=== PATIENT | male | born 1975 | race Caucasian/White ===

== ENCOUNTER → 2018-05-16 | Outpatient (CLI) | payer MEDICARE, MEDICAID ==
[2018-05-16 16:19] LABS: BASOPHILS % (AUTO) 1 % (0-10); EOSINOPHILS # (AUTO) 0.1 10^3/uL (0.0-0.3); EOSINOPHILS % (AUTO) 2 % (0-10); HEMATOCRIT 40 % (40-54); HEMOGLOBIN 13.6 G/DL (13.3-17.7); LYMPHOCYTES # (AUTO) 3.2 X 10^3 (1.0-4.0); LYMPHOCYTES % (AUTO) 38 % (12-44); MEAN CORPUSCULAR HEMOGLOBIN 29 PG (25-34); MEAN CORPUSCULAR HGB CONC 34 G/DL (32-36); MEAN CORPUSCULAR VOLUME 84 FL (80-99); MEAN PLATELET VOLUME 9.7 FL (7.4-10.4); MONOCYTES # (AUTO) 0.7 X 10^3 (0.0-1.0); MONOCYTES % (AUTO) 8 % (0-12); NEUTROPHILS # (AUTO) 4.6 X 10^3 (1.8-7.8); NEUTROPHILS % (AUTO) 53 % (42-75); PLATELET COUNT 256 10^3/uL (130-400); RED BLOOD COUNT 4.77 10^6/uL (4.35-5.85); RED CELL DISTRIBUTION WIDTH 13.3 % (10.0-14.5); WHITE BLOOD COUNT 8.6 10^3/uL (4.3-11.0)
[2018-05-19 00:22] LABS: ALTERNARIA MOLD RAST <0.35 kU/L (<0.35); RAGWEED RAST <0.35 kU/L (<0.35)
== END ==
LOC: LAB 15:13
PROVIDERS: ATTEND Nurse Practitioner Family
DX: J45.909 Unspecified asthma, uncomplicated (principal); R06.00 Dyspnea, unspecified; G47.30 Sleep apnea, unspecified
CPT/HCPCS: 36415; 82785; 85025; 86003

== ENCOUNTER → 2018-05-29 | Outpatient (CLI) | payer MEDICARE, MEDICAID ==
[~2018-05-29] MED LIST: RT-ALBUTEROL SULF 2.5 MG/3 ML PRE-MIX VIAL INH ONE; RT-ALBUTEROL SULF 2.5 MG/3 ML PRE-MIX VIAL ONE
== END ==
LOC: RT 12:14
PROVIDERS: ATTEND Nurse Practitioner Family
DX: J45.909 Unspecified asthma, uncomplicated (principal); G47.30 Sleep apnea, unspecified; R06.00 Dyspnea, unspecified
CPT/HCPCS: 36600; 82805; 94060; 94726; 94729

== ENCOUNTER → 2018-06-09 | Outpatient (CLI) | payer MEDICARE, MEDICAID | LOC: CARD 12:53 | PROVIDERS: ATTEND Internal Medicine Interventional Cardiology | DX: R00.2 Palpitations (principal); E11.9 Type 2 diabetes mellitus without complications; E78.00 Pure hypercholesterolemia, unspecified; I10 Essential (primary) hypertension; I47.1 Supraventricular tachycardia; R06.02 Shortness of breath | CPT/HCPCS: 93225; 93226 ==

== ENCOUNTER 2018-07-09 14:30 | Outpatient (RCR) | payer MEDICARE, MEDICAID | END 2018-09-10 | disposition home or self-care (01) | LOC: CARD 14:30 | PROVIDERS: ATTEND Internal Medicine Interventional Cardiology | DX: I47.1 Supraventricular tachycardia (principal); R06.02 Shortness of breath | CPT/HCPCS: 93270 ==

== ENCOUNTER → 2018-08-08 | Outpatient (CLI) | payer MEDICARE, MEDICAID | LOC: CARD 12:20 | PROVIDERS: ATTEND Internal Medicine Interventional Cardiology | DX: E11.9 Type 2 diabetes mellitus without complications (principal); E78.00 Pure hypercholesterolemia, unspecified; I10 Essential (primary) hypertension; I47.1 Supraventricular tachycardia; R06.02 Shortness of breath | CPT/HCPCS: 93306 ==

== ENCOUNTER → 2020-05-05 | Outpatient (CLI) | payer MEDICARE, MEDICAID ==
[2020-05-05 13:28] LABS: BASOPHILS # (AUTO) 0.1 10^3/uL (0.0-0.1); BASOPHILS % (AUTO) 1 % (0-10); EOSINOPHILS # (AUTO) 0.3 10^3/uL (0.0-0.3); EOSINOPHILS % (AUTO) 4 % (0-10); HEMATOCRIT 45 % (40-54); HEMOGLOBIN 15.3 g/dL (13.3-17.7); LYMPHOCYTES # (AUTO) 2.6 10^3/uL (1.0-4.0); LYMPHOCYTES % (AUTO) 34 % (12-44); MEAN CORPUSCULAR HEMOGLOBIN 28 pg (25-34); MEAN CORPUSCULAR HGB CONC 34 g/dL (32-36); MEAN CORPUSCULAR VOLUME 83 fL (80-99); MEAN PLATELET VOLUME 9.4 fL (9.0-12.2); MONOCYTES # (AUTO) 0.5 10^3/uL (0.0-1.0); MONOCYTES % (AUTO) 6 % (0-12); NEUTROPHILS # (AUTO) 4.4 10^3/uL (1.8-7.8); NEUTROPHILS % (AUTO) 55 % (42-75); PLATELET COUNT 272 10^3/uL (130-400); WHITE BLOOD COUNT 7.9 10^3/uL (4.3-11.0)
[2020-05-05 13:49] LABS: ALANINE AMINOTRANSFERASE 31 U/L (0-55); ALBUMIN 4.1 GM/DL (3.2-4.5); ALKALINE PHOSPHATASE 96 U/L (40-136); BILIRUBIN,TOTAL 0.3 MG/DL (0.1-1.0); BUN/CREATININE RATIO 13; CALCIUM 9.1 MG/DL (8.5-10.1); CARBON DIOXIDE 19 MMOL/L (21-32); CHLORIDE 104 MMOL/L (98-107); CREATININE SERUM 0.98 MG/DL (0.60-1.30); GFR ESTIMATED > 60; GLUCOSE 297 MG/DL (70-105); POTASSIUM 4.4 MMOL/L (3.6-5.0); SODIUM 136 MMOL/L (135-145); TOTAL PROTEIN 7.3 GM/DL (6.4-8.2)
== END ==
LOC: LAB 12:58
PROVIDERS: ATTEND Internal Medicine
DX: E11.65 Type 2 diabetes mellitus with hyperglycemia (principal); I10 Essential (primary) hypertension; Z79.4 Long term (current) use of insulin
CPT/HCPCS: 36415; 80053; 83036; 85025

== ENCOUNTER 2020-05-27 18:39 | Emergency (ER) | payer MEDICARE, MEDICAID ==
[~2020-05-27] VITALS: Ht 180 cm; Wt 135.0 kg
--- NOTE | 2020-05-27 19:03 | ED Upper Extremity ---
General Stated Complaint: FALL/L ARM INJ Source: patient Exam Limitations: no limitations History of Present Illness Date Seen by Provider: May 27, 2020 Time Seen by Provider: 18:59 Initial Comments To ER by private vehicle from home with reports of left forearm and hand pain. This occurred after he slipped and fell on a wet floor at [facility] earlier this evening. . Complains of some pain to the base of the thumb on the right and a numb painful sensation from the pinky finger on the left up to the elbow. Onset: just prior to arrival Severity: moderate Pain/Injury Location: left forearm Method of Injury: fell Modifying Factors: Worse With Movement Allergies and Home Medications Allergies Coded Allergies: Penicillins (Unverified Allergy, Severe, HIVES, 05/29/18) butorphanol (Verified Allergy, Unknown, 05/27/20) dapagliflozin (Verified Allergy, Unknown, 05/27/20) duloxetine (Verified Allergy, Unknown, 05/27/20) meperidine (Verified Allergy, Unknown, 05/27/20) Patient Home Medication List Home Medication List Reviewed: Yes Review of Systems Constitutional: see HPI EENTM: see HPI Respiratory: no symptoms reported Cardiovascular: no symptoms reported Gastrointestinal: see HPI Musculoskeletal: see HPI Skin: no symptoms reported Psychiatric/Neurological: No Symptoms Reported Past Ueppwmp-Ifvaav-Aizeyf Hx Patient Social History Recent Foreign Travel: No Contact w/Someone Who Travel: No Physical Exam Vital Signs Vital Signs - First Documented 05/27/20 19:01 Temp 36.6 Pulse 113 Resp 18 B/P (MAP) 152/99 (116) Pulse Ox 96 O2 Delivery Room Air Capillary Refill : Height, Weight, BMI Height: '" Weight: lbs. oz. kg; BMI Method: General Appearance: WD/WN, no apparent distress Neck: non-tender, full range of motion Respiratory: no respiratory distress, no accessory muscle use Gastrointestinal: normal bowel sounds, non tender Shoulder: normal inspection, non-tender Elbow/Forearm: normal inspection, non-tender Wrist: Yes normal inspection Hand: normal inspection, Right, Left, soft tissue tenderness Neurologic/Tendon: normal motor functions, normal tendon functions, other (Reduced sensation to the left pinky finger and the ulnar side of the ring finger. Normal sensation on the radial side of the ring finger. Brisk capillary refill no deformity no swelling no ecchymosis or abrasions to any part of the arm. Full flexion and extension of the elbow, he does have full powers pination and pronation of the forearm but this motion causes him pain mostly at the wrist.) Neurologic/Psychiatric: alert, normal mood/affect, oriented x 3 Skin: normal color, warm/dry Progress/Results/Core Measures Results/Orders My Orders Orders - CHRISSY ASHLEY APRN Forearm, Left, 2 Views (05/27/20 18:59) Hand, 3 Views, Bilateral (05/27/20 19:03) Wrist,Bilat,3 Views Or More (05/27/20 19:27) Hand, 3 Views, Bilateral (05/27/20 19:32) Vital Signs/I&O 05/27/20 19:01 Temp 36.6 Pulse 113 Resp 18 B/P (MAP) 152/99 (116) Pulse Ox 96 O2 Delivery Room Air Departure Impression Primary Impression: Fall Qualified Codes: W19.XXXA - Unspecified fall, initial encounter Additional Impressions: Contusion of ulnar nerve Qualified Codes: S54.02XA - Injury of ulnar nerve at forearm level, left arm, initial encounter Forearm contusion Qualified Codes: S50.12XA - Contusion of left forearm, initial encounter Disposition: 01 HOME, SELF-CARE Condition: Stable Departure-Patient Inst. Decision time for Depature: 20:26 Referrals: NO,LOCAL PHYSICIAN (PCP) Primary Care Physician CHARLES SIMONS MD, MICHAEL P MD Patient Instructions: Contusion (DC) Add. Discharge Instructions: 1. Call one of the orthopedists tomorrow to make an appointment to be seen for follow-up later this week. Return to ER for any concerns. CHRISSY ASHLEY APRN May 27, 2020 19:03
--- NOTE | 2020-05-27 19:40 | Diagnostic Imaging Report ---
EXAM: Left forearm at 7:18 PM INDICATION: Fell, arm pain. AP and lateral views were obtained. There are no prior studies available for comparison. FINDINGS: There is no fracture, dislocation or acute bony abnormality evident. The radiocarpal and elbow joints are well maintained. There is a tiny 1 to 2 mm calcific density interposed between the distal humerus, the radial head and the ulna on the AP view. This could represent a small loose body within the joint space. The posterior fat-pad of the elbow joint is not elevated. The soft tissues are unremarkable. IMPRESSION: 1. There is no evidence for an acute bony abnormality. 2. There is a question of a tiny loose body within the elbow joint. Dictated by: Dictated on workstation # [id number]
--- NOTE | 2020-05-27 19:42 | Diagnostic Imaging Report ---
EXAM: Bilateral wrists. INDICATION: Injury, hand and wrist pain 3 views of both wrist joints were obtained. COMPARISON: There are no prior studies available for comparison. FINDINGS: There is no fracture, dislocation or acute bony abnormality evident. There is mild narrowing of each radiocarpal joint. The soft tissues are unremarkable. IMPRESSION: There is no evidence for an acute bony abnormality of either wrist. Dictated by: Dictated on workstation # [id number]
[2020-05-27 20:30] VITALS: BP 149/87
--- NOTE | 2020-05-27 20:30 | Diagnostic Imaging Report ---
EXAM: Bilateral hands at 7:47 PM INDICATION: Hand pain. 3 views were obtained. FINDINGS: This exam is less than optimal as the patient was unable to straighten his fingers. There is no fracture, dislocation or acute bony abnormality identified with certainty. The soft tissues are unremarkable. IMPRESSION: 1. There is no evidence for an acute bony abnormality. 2. These results were discussed with Barron Hobbs APRN. Dictated by: Dictated on workstation # [id number]
== END 2020-05-27 20:31 | disposition home or self-care (01) ==
LOC: EDUNIT# 18:39 → ER 18:40
DX: S50.12XA Contusion of left forearm, initial encounter (principal); Z88.0 Allergy status to penicillin; Z88.5 Allergy status to narcotic agent; Z88.8 Allergy status to other drugs, medicaments and biological substances; W01.0XXA Fall on same level from slipping, tripping and stumbling without subsequent striking against object, initial encounter
CPT/HCPCS: 73090

== ENCOUNTER 2020-10-26 08:32 | Emergency (ER) | payer MEDICARE, MEDICAID ==
[~2020-10-26] VITALS: Ht 180.3 cm; Wt 138.6 kg
--- NOTE | 2020-10-26 09:10 | ED General ---
General Chief Complaint: Bite-Animal/Human/Insect Stated Complaint: BEE STING Nursing Triage Note: AMB TO ED REPORTS WAS WALKING IN HOUSE WHEN WAS STUNG ON BOTTEM OF R FOOT IS ALLERGIC TO BUT COULD NOT FIND EPI PEN C/O NAUSEA AND WITH ITCHEY. BITE OCCURED AT 805AM Nursing Sepsis Screen: No Definite Risk Source of Information: Patient Exam Limitations: No Limitations History of Present Illness Date Seen by Provider: Oct 26, 2020 Time Seen by Provider: 08:50 Initial Comments Patient is a 45-year-old male who presents to the emergency department today with a chief complaint of a bee sting to the bottom of his right foot. Patient states that he was getting up and getting ready to take his dogs outside when he stepped on a bee. 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 Patient states he went to look for his EpiPen but cannot find it and decided to come to the emergency department. Patient is complaining of diffuse itching. He denies feeling short of breath, lightheaded or having a syncopal episode. He is not nauseated. He complains of pain to the metatarsophalangeal joint of his right foot at the base of his big toe where he was stung. Denies any and all other illnesses or complaints of injury. All other review of systems reviewed and negative except as stated. Timing/Duration: 1 Hour Severity: Mild Associated Systoms: Denies Symptoms Allergies and Home Medications Allergies Coded Allergies: Penicillins (Unverified Allergy, Severe, HIVES, 05/29/18) butorphanol (Verified Allergy, Unknown, 05/27/20) dapagliflozin (Verified Allergy, Unknown, 05/27/20) duloxetine (Verified Allergy, Unknown, 05/27/20) meperidine (Verified Allergy, Unknown, 05/27/20) Patient Home Medication List Home Medication List Reviewed: Yes Review of Systems Review of Systems Constitutional: see HPI EENTM: no symptoms reported Respiratory: no symptoms reported; No short of breath, No stridor, No wheezing Gastrointestinal: no symptoms reported; No nausea, No vomiting Genitourinary: no symptoms reported Musculoskeletal: joint pain (Right great toe) Skin: other (itching) All Other Systems Reviewed Negative Unless Noted: Yes Past Wdnjplj-Eszmsj-Oeztxi Hx Patient Social History Alcohol Use: Denies Use Smoking Status: Never a Smoker 2nd Hand Smoke Exposure: No Recent Infectious Disease Expo: No Recent Hopitalizations: No Immunizations Up To Date Tetanus Booster (TDap): Unknown Seasonal Allergies Seasonal Allergies: No Past Medical History Surgeries: No Respiratory: Yes Asthma, COPD Cardiac: Yes Hypertension Neurological: No Genitourinary: No Gastrointestinal: No Musculoskeletal: No Endocrine: Yes Diabetes, Non-Insulin dep HEENT: No Cancer: No Psychosocial: No Integumentary: No Blood Disorders: No Physical Exam Vital Signs Vital Signs - First Documented 10/26/20 08:32 Temp 36.3 Pulse 89 Resp 18 B/P (MAP) 159/92 (114) Pulse Ox 97 O2 Delivery Room Air Capillary Refill : Less Than 3 Seconds Height, Weight, BMI Height: '" Weight: lbs. oz. kg; 42.00 BMI Method: General Appearance: No Apparent Distress, WD/WN HEENT: PERRL/EOMI Neck: Normal Inspection Respiratory: Lungs Clear, Normal Breath Sounds, No Accessory Muscle Use, No Respiratory Distress Cardiovascular: Regular Rate, Rhythm Back: Normal Inspection Extremity: Normal Capillary Refill, Normal Inspection, Normal Range of Motion, Other (Right great toe MTP joint minimal swelling minimal erythema some pain with manipulation of the great toe) Neurologic/Psychiatric: Alert, Oriented x3, No Motor/Sensory Deficits, Normal Mood/Affect Skin: Normal Color, Warm/Dry, Other (No hives are noted or other rashes) Progress/Results/Core Measures Suspected Sepsis Recent Fever Within 48 Hours: No Infection Criteria Present: None New/Unexplained Altered Menta: No Sepsis Screen: No Definite Risk SIRS Temperature: Pulse: 89 Respiratory Rate: 18 Blood Pressure 159 /92 Mean: 114 Results/Orders My Orders Orders - NADIRA SHARP MD Prednisone Tablet (Deltasone Tablet) (10/26/20 09:15) Diphenhydramine Tablet (Benadryl Tablet) (10/26/20 09:15) Prednisone Tablet (Deltasone Tablet) (10/26/20 09:15) Vital Signs/I&O 10/26/20 08:32 Temp 36.3 Pulse 89 Resp 18 B/P (MAP) 159/92 (114) Pulse Ox 97 O2 Delivery Room Air Capillary Refill : Less Than 3 Seconds Blood Pressure Mean: 114 Departure Impression Primary Impression: Allergic reaction to bee sting Disposition: 01 HOME, SELF-CARE Condition: Stable Departure-Patient Inst. Decision time for Depature: 09:10 Referrals: [facility] [place],LOCAL PHYSICIAN (PCP) Primary Care Physician Patient Instructions: Insect Bites and Stings Add. Discharge Instructions: Take [id number] Benadryl, 2 pills which is 50 mg every 6 hours as needed for the next 24 hours. I have given you a dose of Benadryl here in the emergency department as well as prednisone. Take the prednisone once a day for the next 3 days after today. If you become short of breath, lightheaded dizzy or have a passing out spell or have any other emergent concerning symptoms please come back to the emergency room for reevaluation. Scripts Prednisone (Prednisone) 20 Mg Tab 40 MG PO DAILY, #6 TAB 0 Refills Prov: NADIRA SHARP MD 10/26/20 NADIRA SHARP MD Oct 26, 2020 09:10
[2020-10-26] MEDS ORDERED: PRD20T PO (09:12)
[2020-10-26] MEDS ORDERED: predniSONE 20 MG TAB PO ONE ×2 (09:15)
[2020-10-26] MEDS ORDERED: diphenhydrAMINE 25 MG TAB (BENADRYL) PO ONE (09:15)
[2020-10-26 09:30] VITALS: BP 173/113
== END 2020-10-26 09:30 | disposition home or self-care (01) ==
LOC: ER 08:32 → EDUNIT# 08:37 → ER 09:30
DX: T63.441A Toxic effect of venom of bees, accidental (unintentional), initial encounter (principal); J44.9 Chronic obstructive pulmonary disease, unspecified; I10 Essential (primary) hypertension; E11.9 Type 2 diabetes mellitus without complications; Z88.0 Allergy status to penicillin; Z88.5 Allergy status to narcotic agent; Z88.8 Allergy status to other drugs, medicaments and biological substances
CPT/HCPCS: 99283

== ENCOUNTER → 2021-02-04 | Outpatient (CLI) | payer MEDICARE, MEDICAID ==
[~2021-02-04] MED LIST changes: +PRD20T PO; -RT-ALBUTEROL SULF 2.5 MG/3 ML PRE-MIX VIAL ONE
== END ==
LOC: RT 13:00
PROVIDERS: ATTEND Nurse Practitioner Family
DX: J44.9 Chronic obstructive pulmonary disease, unspecified (principal)
CPT/HCPCS: 94060; 94726; 94729

== ENCOUNTER 2021-03-27 22:31 | Emergency (ER) | payer MEDICARE, MEDICAID ==
[~2021-03-27] VITALS: Ht 177.8 cm; Wt 112.0 kg
[~2021-03-27 22:31] MED LIST changes: -RT-ALBUTEROL SULF 2.5 MG/3 ML PRE-MIX VIAL INH ONE
--- OUTSIDE RECORDS SUMMARY | 2021-03-27 22:36 | XMS REPORT | Clinical Summary ---
Author Author [facility] Address Unknown Phone Unavailable Care Team Providers Care Typesetting Machine Tender Name Role Phone Cheri Billings MD Unavailable Amy Oliva APRN Unavailable Caleb Rios MD Unavailable Homar Almaraz MD [phone] Leilani Mendoza DO [id number] Leilani Mendoza DO PCP Allergies Comments Active Allergy Reactions Severity Noted Date Meperidine Hcl Nausea And 08/31/2012 Vomiting Duloxetine Nausea And 12/04/2010 Vomiting Dapagliflozin Swelling High 02/23/2017 Atorvastatin Hives, Rash High 09/13/2013 Penicillins Nausea And High 12/04/2010 Vomiting Quetiapine Fumerate Hives 08/31/2012 ONLY TESTOSTERONE GELS- IM TESTOSTERONE [place] Testosterone Hives, Rash 03/06/2019 Wasp Venom Protein Hives 08/31/2012 Medications End Date Status Medication Sig Dispensed Refills Start Date Active fenofibrate (TRICOR) 145 TAKE 1 TABLET 90 tablet 3 MG tabletIndications: BY MOUTH 0 Mixed hyperlipidemia EVERY DAY Active allopurinol (ZYLOPRIM) Take 1 tablet 90 tablet 3 0 100 MG tabletIndications: (100 mg 0 Chronic gout 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 cause, unspecified site Active cetirizine (ZYRTEC) 10 MG Take 1 tablet 90 tablet 3 tabletIndications: (10 mg total) 0 Asthma, moderate by mouth persistent, daily. poorly-controlled Active dilTIAZem (TIAZAC) 180 MG TAKE 1 90 capsule 3 24 hr capsuleIndications: CAPSULE BY 0 Essential hypertension MOUTH EVERY DAY Active exenatide ER (BYDUREON Inject 0.85 10.2 mL 3 BCISE) 2 MG/0.85ML mLs (2 mg 0 Auto-injector total) into penIndications: Type 2 the skin diabetes mellitus with every 7 days. hyperglycemia, without Dx. E11.65 long-term current use of insulin ([facility]), Hypogonadism in male, Diabetic peripheral neuropathy ([facility]), Class 3 severe obesity due to excess calories with serious comorbidity and body mass index (BMI) of 45.0 to 49.9 in adult ([facility]), Essential hypertension, Mixed hyperlipidemia, Personal history of nonadherence to medical treatment, Exercise counseling, High risk medication use, Dietary counseling and surveillance Active glipiZIDE (GLUCOTROL) 5 Take 1 tablet 270 tablet 3 MG tabletIndications: (5 mg total) 0 Hyperglycemia by mouth 3 (three) times daily. Additional Information Patient not taking. Reported on 08/27/2020 Active Insulin Pen Needle 31G X Use to inject 200 each 3 5 MM MISCIndications: insulin 5 0 Type 2 diabetes mellitus times/day. with hyperglycemia, without long-term current use of insulin ([facility]), Hypogonadism in male, Diabetic peripheral neuropathy ([facility]), Class 3 severe obesity due to excess calories with serious comorbidity and body mass index (BMI) of 45.0 to 49.9 in adult ([facility]), Essential hypertension, Mixed hyperlipidemia, Personal history of nonadherence to medical treatment, Exercise counseling, High risk medication use, Dietary counseling and surveillance, Long-term insulin use ([facility]), Complex care coordination Active losartan (COZAAR) 100 MG Take 1 tablet 90 tablet 3 tabletIndications: (100 mg 0 Essential hypertension total) by mouth daily. Active rizatriptan (MAXALT) 5 MG Take 2 10 tablet 3 tabletIndications: tablets (10 0 Migraine with aura and mg total) by without status mouth as migrainosus, not needed for intractable Migraine. Active rosuvastatin (CRESTOR) 10 Take 1 tablet 90 tablet 3 MG tabletIndications: (10 mg total) 0 Hyperlipidemia by mouth daily. Indications: High Amount of Fats in the Blood Active nystatin (NYSTATIN) Apply 15 g 5 powderIndications: topically 2 0 Candidiasis times daily as needed Active amLODIPine (NORVASC) 10 Take 1 tablet 90 tablet 1 MG tabletIndications: (10 mg total) 0 Essential hypertension by mouth daily. Active carvedilol (COREG) 12.5 Take 1 tablet 180 tablet 1 MG tabletIndications: (12.5 mg 0 Essential hypertension total) by mouth 2 (two) times daily with meals. Active fluticasone (FLONASE) 50 SPRAY 1 SPRAY 32 mL 3 MCG/ACT nasal INTO EACH 0 sprayIndications: Asthma, NOSTRIL EVERY moderate persistent, DAY poorly-controlled Active furosemide (LASIX) 20 MG Take 1 tablet 90 tablet 1 tabletIndications: Type 2 (20 mg total) 0 diabetes mellitus with by mouth hyperglycemia, without daily. long-term current use of insulin (HCC), Hypogonadism in male, Diabetic peripheral neuropathy (HCC), Class 3 severe obesity due to excess calories with serious comorbidity and body mass index (BMI) of 45.0 to 49.9 in adult (HCC), Essential hypertension, Mixed hyperlipidemia, Personal history of nonadherence to medical treatment, Exercise counseling, High risk medication use, Dietary counseling and surveillance Active insulin detemir (LEVEMIR Inject 0.26 30 mL 1 1 FLEXTOUCH) 100 UNIT/ML mLs (26 Units 0 pen injectionIndications: total) into Type 2 diabetes mellitus the skin at with hyperglycemia, bedtime. without long-term current use of insulin (HCC) Active pantoprazole (PROTONIX) Take 1 tablet 90 tablet 1 20 MG tablet (20 mg total) 0 by mouth daily. Active SYRINGE-NEEDLE, DISP, 3 USE 100 each 1 ML (B-D 3CC LUER-MARIA LUISA SYR DIRECTED TO 0 [id number]/2) 21G X 1-1/2" 3 INJECT ML MISCIndications: TESTOSTERONE Hypogonadism in male Active icosapent (VASCEPA) 1 g TAKE 2 360 capsule 1 capsuleIndications: Mixed CAPSULES BY 0 hyperlipidemia MOUTH TWICE A DAY WITH MEALS Active albuterol (VENTOLIN HFA) INHALE 2 18 g 5 1 108 (90 Base) MCG/ACT PUFFS BY 0 inhalerIndications: MOUTH EVERY 6 Asthma, moderate HOURS persistent, NEEDED FOR poorly-controlled WHEEZE Active NOVOLOG FLEXPEN 100 INJECT 10 15 mL 5 UNIT/ML pen UNITS 0 injectionIndications: SUBCUTANEOUSL Type 2 diabetes mellitus Y THREE TIMES with hyperglycemia, DAILY BEFORE without long-term current MEAL(S) use of insulin ([facility]), Hypogonadism in male, Diabetic peripheral neuropathy ([facility]), Class 3 severe obesity due to excess calories with serious comorbidity and body mass index (BMI) of 45.0 to 49.9 in adult ([facility]), Essential hypertension, Mixed hyperlipidemia, Personal history of nonadherence to medical treatment, Exercise counseling, High risk medication use, Dietary counseling and surveillance, Long-term insulin use ([facility]), Complex care coordination Active tiotropium (SPIRIVA INHALE 2 4 g 1 RESPIMAT) 2.5 MCG/ACT SPRAY(S) BY 0 inhalerIndications: MOUTH ONCE Asthma, moderate DAILY persistent, poorly-controlled Active SYMBICORT 160-4.5 MCG/ACT Inhale 2 10.2 g 0 inhalerIndications: puffs by 0 Asthma, moderate mouth twice persistent, daily poorly-controlled Active pramipexole (MIRAPEX) 0.5 Take 1 tablet 90 tablet 3 MG tabletIndications: (0.5 mg 0 Restless legs syndrome total) by mouth daily. Active meloxicam (MOBIC) 7.5 MG Take 2 90 tablet 2 1 tabletIndications: Pain tablets (15 0 in joint, multiple sites mg total) by mouth daily. Active lamoTRIgine (LAMICTAL) Take 1 tablet 30 tablet 1 1 100 MG tabletIndications: (100 mg 0 Diabetic peripheral total) by neuropathy ([facility]) mouth daily. Active zolpidem (AMBIEN) 5 MG TAKE 1 TABLET 30 tablet 3 0 tabletIndications: BY MOUTH 1 Primary insomnia EVERY NIGHT AT BEDTIME NEEDED FOR SLEEP. DO NOT EXCEED A DAILY DOSE OF 5MG. Active oxybutynin (DITROPAN) 5 Take 1 tablet 60 tablet 5 MG tabletIndications: by mouth 1 Urinary frequency twice daily Active pregabalin (LYRICA) 200 TAKE 1 TABLET 90 capsule 3 MG capsuleIndications: BY MOUTH 1 Diabetic peripheral THREE TIMES neuropathy (HCC) DAILY Active Problems Problem Noted Date Migraine 05/22/2020 Last Assessment & Plan: Formatting of this note might be differ ent from the original. Patient will call insurance and find ne urologist in network/ close to him We will place referral for neurology to get evaluated Morbid obesity with BMI of 40.0-44.9, adult 11/08/19 Overview: Formatting of this note might be differ ent from the original. advised on diet and exercise. Primary insomnia 11/01/2019 Complex care coordination 02/21/2019 PALACIO (dyspnea on exertion) 08/02/2016 Personal history of nonadherence to medical treatment 07/14/2016 Diabetic peripheral neuropathy 07/14/2016 Obesity, unspecified Type 2 diabetes mellitus with hyperglyc emia, with long-term current use of insulin Last Assessment & Plan: Formatting of this note might be differ ent from the original. Patient was educated on the importance of continuing using insulin. Explained the difference tween A1c accu racy and actual glucose level. Patient was under the impression that s osmar his A1c was improving he did not have to use insulin as much. Educated the patient that his last gluc ose level was significantly elevated, while A1c did improve that ca n be altered due to other issues. Patient agreed the importance of contin uing insulin as directed, include glucose checks 4 times a day, matching insulin use and food intake, porting any low glucose symptoms. Patient desires labs to be sent to [facility]. Hospital number was given Essential hypertension Last Assessment & Plan: Formatting of this note might be differ ent from the original. Stable. Continue current medications. No change to current therapy. Hypogonadism in male Mixed hyperlipidemia Last Assessment & Plan: Formatting of this note might be differ ent from the original. Will need repeat lipid labs Resolved Problems Problem Noted Date Resolved Date Chest pain 09/13/2013 06/04/2019 Other abnormal blood chemistry 05/17/2019 Immunizations Name Administration Dates Next Due COVID-19 mRNA LNP-S PF 08/29/2020, 07/31/2020 (Moderna) INFLUENZA IIV4 PF 05/17/2019, 04/11/2017, (FLULAVAL,FLUZONE,FLUARIX ,AFLURIA QUAD) Influenza IIV3 MDV 04/10/2018, 07/12/2015 (Multi-dose vial) Influenza IIV3 PFree 04/18/2014, 04/28/2013, , 06/02/2011, 04/17/2009, 05/17/2008 Influenza IIV4 MDV 05/17/2019 (Multi-dose vial) Influenza TIV (HX thru 05/03/2005, 04/18/2001 Apr 02 2010) Pneumococcal 04/18/2014, 05/17/2008, 09/2003 Polysaccharide (23-valent) Tdap 07/16/2013, 11/11/2006 Family History Medical History Relation Name Comments Lung cancer Father Father - Cause of D eath:Cancer, lung Coronary art dis Mother Mother - CAD / CABG Colon cancer Neg Hx Relation Name Status Comments Father (Age 62) Half-Brother x3 Alive Half-Sister x5 Alive Mother (Age 78) Social History Date Tobacco Use Types Packs/Day Years Used Quit: 09/12/2004 Former Smoker Cigarettes 1 Smokeless Tobacco: Never Used Tobacco Cessation: Counseling Given: Yes Comments Alcohol Use Standard Drinks/Week occ Yes 0 (1 standard drink = 0.6 o z pure alcohol) Control Partners Comments Sexually Active Female Not Currently Sex Assigned at Date Recorded Not on file Industry Job Start Date Occupation Not on file Not on file Not on file Last Filed Vital Signs Reading Time Taken Comments Vital Sign 140/86 11/08/2019 11:05 AM CDT Blood Pressure 109 02/12/2020 1:31 PM CDT Pulse 36.9 C (98.4 F) 11/08/2019 11:05 AM CDT Temperature 16 11/08/2019 11:05 AM CDT Respiratory Rate 97% 02/12/2020 1:31 PM CDT Oxygen Saturation - - Inhaled Oxygen Concentration 135.2 kg (298 lb) 02/12/2020 1:31 PM CDT Weight 175.3 cm (5' 9") 02/12/2020 1:31 PM CDT Height 44.01 02/12/2020 1:31 PM CDT Body Mass Index Plan of Treatment Health Maintenance Due Date Last Done Comments Hepatitis C Screening 1993 Annual Wellness Visit 02/03/2020 02/02/2019 Diabetic A1C Due 05/10/2020 11/08/2019, 05/28/2019, 02/23/2019, Additional history exists Diabetic Foot Exam 05/24/2020 05/24/2019, 02/02/2019, 07/14/2016, Additional history exists Urine Microalbumin 05/28/2020 05/28/2019, 05/28/2019, 02/23/2019, Additional history exists Diabetic Eye Exam 01/06/2021 01/07/2020, 04/16/2019, 04/11/2019 Influenza Vaccine (#1) 2021 05/17/2019, 05/17/2019, 04/10/2018, Additional history exists DTaP,Tdap,and Td Vaccines 07/16/2023 07/16/2013, (3 - Td or Tdap) 11/11/2006 Pneumo-Vaccine: 65+Yrs (2 2038 04/18/2014, of 2 - PPSV23) 05/17/2008, 12/05/2003 Pneumo-Vaccine: Peds (0-5 2038 04/18/2014, Yrs) & At-Risk Patients 05/17/2008, (6-64 Yrs) (2 of 2 - 12/05/2003 PPSV23) COVID-19 Vaccine Completed 08/29/2020, 07/31/2020 HIB Vaccines Aged Out No longer eligible based on patient's age to complete this topic IPV Vaccines Aged Out No longer eligible based on patient's age to complete this topic Meningococcal Vaccine Aged Out No longer eligib le based on patient's age to complete this topic Rotavirus Vaccines Aged Out No longer eligible based on patient's age to complete this topic Goals Goal Patient Associated Recent Progress Patient-Stat Aut hor Goal Type Problems ed? 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 Explanation Type Date Recorded Advance Directives and Living Will Power of Energy And Conservation Technician Date Inactivated Comments Code Status Date Activated 09/13/2013 9:10 PM Full Code 09/13/2013 1:28 AM Care Teams Start Date End Date Typesetting Machine Tender Relationship Specialty 11/08/19 Leilani Mendoza, PCP - Internal [address] [place] [address] Medicine [email or web address] 05/22/20 Leilani Mendoza DO PCP - General Internal [address] [place] [address] [email or web address] 04/04/17 Cheri Billings MD Pulmonology [address] [facility] ([facility] [place] [address] [email or web address] 12/11/18 Amy Oliva, SOCIAL MEDIA DIRECTOR Nurse [address] [place] [address] 01/17/19 Caleb Rios MD Neurology [address] [place], [place] [id number] [email or web address] 04/11/19 Homar Almaraz MD Ophthalmologi Ophthalmolog [address] [facility] [address] [place] [id number] [email or web address]
--- OUTSIDE RECORDS SUMMARY | 2021-03-27 22:36 | XMS REPORT | Clinical Summary ---
Author Author [facility] Organization [facility] Address Unknown Phone Unavailable Care Team Providers Care Strip Polisher Name Role Phone None, None PP Unavailable Allergies Comments Active Allergy Reactions Severity Noted Date loopy Butorphanol Tartrate Other (see 12/02/2013 comments) Duloxetine Unknown 05/17/2012 Duloxetine Nausea And 12/23/2012 Vomiting Meperidine Unknown 05/17/2012 Meperidine Nausea Only 12/23/2012 Penicillin G Potassium Unknown 05/17/2012 Penicillins Nausea And 12/23/2012 Vomiting, Rash Venom-Wasp Hives 08/31/2012 Medications End Date Status Medication Sig Dispensed Refills Start Date Active albuterol HFA (PROVENTIL Inhale 2 0 HFA;VENTOLIN HFA) 90 puffs every mcg/actuation inhaler 30 minutes as needed. Active allopurinol (ZYLOPRIM) Take 100 mg 0 100 mg tablet by mouth daily. Active budesonide-formoterol Inhale 2 0 (SYMBICORT) 160-4.5 puffs 2 times mcg/actuation inhaler daily. Active carvedilol (COREG) 12.5 Take 12.5 mg 0 mg tablet by mouth. Active esomeprazole (NexIUM) 40 Take 40 mg by 0 mg packet mouth daily. Active glyBURIDE (DIABETA) 2.5 Take 2.5 mg 0 mg tablet by mouth daily. Active glyBURIDE (DIABETA) 5 mg Take 5 mg by 0 tablet mouth daily. Active ipratropium HFA (ATROVENT Inhale 2 0 06/0 HFA) 17 mcg/actuation puffs every 6 4 inhaler hours as needed. Active meloxicam (MOBIC) 7.5 mg Take 7.5 mg 0 tablet by mouth daily. Active metoprolol tartrate Take 25 mg by 0 (LOPRESSOR) 25 mg tablet mouth 2 times daily. Active naproxen (NAPROSYN) 500 Take 500 mg 0 04/19/ 201 mg tablet by mouth. 4 Active omalizumab (XOLAIR) 150 Inject 350 mg 0 mg injection under the skin. Active omega-3 acid ethyl esters Take 4 g by 0 (LOVAZA) 1 gram capsule mouth daily. Active pramipexole (MIRAPEX) 0.5 Take 0.5 mg 0 mg tablet by mouth daily. Active pregabalin (LYRICA) 50 mg Take 50 mg by 0 capsule mouth 2 times daily. Active rizatriptan (MAXALT) 5 mg Take 10 mg by 0 tablet mouth. Active simvastatin (ZOCOR) 40 mg Take 40 mg by 0 tablet mouth daily. Active valsartan-hydrochlorothia Take 1 tablet 0 zide (DIOVAN-HCT) 320-25 by mouth mg per tablet daily. Active Problems Problem Noted Date Chest pain, unspecified 12/23/2012 Social History Date Tobacco Use Types Packs/Day Years Used Never Smoker Smokeless Tobacco: Never Used Comments Alcohol Use Standard Drinks/Week No 0 (1 standard drink = 0.6 o z pure alcohol) Sex Assigned at Date Recorded Not on file Last Filed Vital Signs Reading Time Taken Comments Vital Sign 126/76 06/15/2019 5:33 PM [employer]DER [employer] Blood Pressure 97 06/15/2019 5:33 PM [employer] Pulse 36.8 C (98.3 F) 06/15/2019 4:12 PM [employer] Temperature 18 06/15/2019 4:12 PM [employer]DER [employer] Respiratory Rate 96% 06/15/2019 5:33 PM SOLDER [employer] Oxygen Saturation - - Inhaled Oxygen Concentration 140 kg (308 lb) 06/15/2019 4:12 PM [employer] Weight 182.9 cm (6') 06/15/2019 4:12 PM [employer] Height 41.77 06/15/2019 4:12 PM [employer] Body Mass Index Plan of Treatment Health Maintenance Due Date Last Done Comments CT Colonography 1973 Cologuard 1973 Colonoscopy 1973 Colorectal Cancer 1973 Screening Hemoglobin A1C 1973 Lipid Panel 1973 MMR Vaccines (1 of - 1974 Standard series) Varicella Vaccines (1 of 1974 2 - 2-dose childhood series) Foot Exam 1983 Ophthalmology Exam 1983 COVID-19 Vaccine (1) 1985 Depression Screening 1985 Hepatitis B Vaccines (1 1992 of 3 - Risk 3-dose series) FOBT/FIT 2018 Sigmoidoscopy 2018 Urine Microalbumin 05/28/2020 05/28/2019 Influenza Vaccine (#1) 2021 04/10/2018, 07/12/2015, 04/18/2014, Additional history exists DTaP,Tdap,and Td Vaccines 07/16/2023 07/16/2013, (3 - Td or Tdap) 11/11/2006 HIB Vaccines Aged Out No longer eligible based on patient's age to complete this topic HPV Vaccines Aged Out No longer eligible based on patient's age to complete this topic Hepatitis A Vaccines Aged Out No longer eligibl e based on patient's age to complete this topic IPV Vaccines Aged Out No longer eligible based on patient's age to complete this topic Meningococcal Vaccine Aged Out No longer eligib le based on patient's age to complete this topic Pneumococcal Aged Out No longer eligible based on patient's age to complete this topic Results Not on filefrom Last 3 Months Insurance Type Payer Benefit Subscriber ID Effective Phone Address Plan / Dates Group MEDICARE MEDICARE [id number] 1998-P 2020 PART A AND resent [address] [place] [address] [facility] [employer] [id number] 2018-P [facility] resent [address] [place] [address] Advance Directives 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
--- OUTSIDE RECORDS SUMMARY | 2021-03-27 22:36 | XMS REPORT | Clinical Summary ---
Author Author [facility] Address Unknown Phone Unavailable Care Team Providers Care Cytology Manager Name Role Phone Casper Harrison MD PCP Casper Harrison MD Unavailable Source Comments [facility] (Labor and Delivery) documents do not appear in the [facility] Allergies Comments Active Allergy Reactions Severity Noted Date Venom-Wasp Hives 08/31/2012 loopy Butorphanol Tartrate Other (See 12/02/2013 Comments) Duloxetine Unknown 05/17/2012 Duloxetine Nausea And 12/23/2012 Vomiting Meperidine Unknown 05/17/2012 Meperidine Nausea Only 12/23/2012 Penicillin G Potassium Unknown 05/17/2012 Penicillins Nausea And 12/23/2012 Vomiting, Rash Medications * Please verify current medications with patient. End Date Status Medication Sig Dispensed Refills Start Date Active omega-3 acid ethyl esters Take 4 g by 0 (LOVAZA) 1 gram capsule mouth once a day. Active allopurinol (FOR Take 100 mg 0 ZYLOPRIM) 100 mg tablet by mouth once a day. Active metoprolol tartrate (FOR Take 25 mg by 0 LOPRESSOR) 25 mg Oral mouth two tablet times a day. Active simvastatin (FOR ZOCOR) Take 40 mg by 0 40 mg tablet mouth at bedtime. Active meloxicam (FOR MOBIC) 7.5 Take 7.5 mg 0 mg tablet by mouth once a day. Active esomeprazole (NEXIUM Take 40 mg by 0 PACKET) 40 mg packet mouth once a day before breakfast. Active budesonide-formoterol Take 2 puffs 0 HFA, conc: 160-4.5 by inhalation mcg/puff, (SYMBICORT) every 12 inhaler hours. Active PROAIR HFA, conc: 90 Take 2 puffs 0 mcg/puff, (PROAIR) by inhalation inhaler every four hours, as needed. Active zolpidem (AMBIEN) 5 mg Take 10 mg by 0 tablet mouth every bedtime, as needed. Active pregabalin (LYRICA) 50 mg Take 50 mg by 0 capsule mouth two times a day. Active rizatriptan (MAXALT) 5 mg Take 10 mg by 0 tablet mouth as needed for Migraine. Active glyBURIDE (DIABETA) 5 mg Take 5 mg by 0 tablet mouth at bedtime. Active glyBURIDE (DIABETA) 2.5 Take 2.5 mg 0 mg tablet by mouth once a day with breakfast. 2.5mg AM, 5mg HS Active pramipexole (MIRAPEX) 0.5 Take 0.5 mg 0 mg tabletIndications: by mouth at Restless Leg Syndrome bedtime. Indications: Restless Leg Syndrome Active Valsartan-Hydrochlorothia Take 1 tablet 0 zide (DIOVAN HCT) 320-25 by mouth once mg tablet a day. Active ipratropium bromide, Take 2 puffs 0 conc: 17 mcg/puff, by inhalation 4 (ATROVENT) inhaler every six hours, as needed. Active omalizumab (XOLAIR) 150 Inject 350 mg 0 mg injection just under the skin every two weeks. Active naproxen (NAPROSYN) 500 Take 1 tablet 20 tablet 0 04/19/201 mg tablet by mouth two 4 times a day, as needed for Mild Pain. Active ondansetron (ZOFRAN-ODT) Take 1 tablet 10 tablet 0 4 mg rapid dissolve by mouth 4 tablet every six hours. Active carvedilol (COREG) 12.5 Take 12.5 mg 0 mg tablet by mouth two times a day with meals. 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 Blood Pressure 95 07/23/2014 1:00 PM TEACHER [employer] Pulse 36.8 C (98.2 F) 07/23/2014 1:00 PM TEACHER [employer]ING Temperature 18 06/25/2014 1:03 PM TEACHER [employer] Respiratory Rate 98% 07/23/2014 1:00 PM TEACHER [employer] TRA[employer]ING Oxygen Saturation - - Inhaled Oxygen Concentration 128.8 kg (284 lb) 06/25/2014 12:00 PM TEACHER [employer] TRA[employer]ING Weight 182.9 cm (6') 07/09/2014 12:10 PM TEACHER [employer] Height 38.52 06/25/2014 12:00 PM TEACHER [employer] TRAINING Body Mass Index Plan of Treatment Health Maintenance Due Date Last Done Comments COVID-19 Vaccine (1) 1985 Influenza Vaccine (#1) 2021 HPV Vaccine Aged Out No longer eligible based on patient's age to complete this topic Pneumococcal Vaccine: Aged Out No longer eligib le based on patient's age to Pediatrics (0 to 5 Years) complete this topic and At-Risk Patients (6 to 64 Years) Results Not on filefrom Last 3 Months Insurance Type Payer Benefit Subscriber ID Effective Phone Address Plan / Dates Group Medicare MEDICARE ZZMEDICARE [id number] 1998-P [phone] [address] [place] [address] Medicaid [facility] [id number] 2017- [address] Present [address] [place] [address] Advance Directives Patient Director And Professor Explanation Type Date Recorded Living Will CPR Directives Durable Medical POA Advanced Directives Care Teams Start Date End Date Cytology Manager Relationship Specialty 05/09/12 Casper Harrison MD PCP - General Family Medicine 12/23/12 Casper Harrison MD Family Medicine
--- NOTE | 2021-03-27 22:43 | ED General ---
General Stated Complaint: ALLERGIC REACTION Source of Information: Patient Exam Limitations: No Limitations History of Present Illness Date Seen by Provider: Mar 27, 2021 Time Seen by Provider: 22:30 Initial Comments Patient to ER by EMS from [facility] with chief complaint that he was laying in bed and was stung by bee on his right foot on the arch. He has a allergy to bees so he took his EpiPen immediately about 10:00, 30 minutes prior to arrival. EMS was summonsed and arrived shortly after that and establish an IV on the way to the ER. Is not having any difficulty breathing, stridor, vocal changes, wheezing, shortness of air. Allergies and Home Medications Allergies Coded Allergies: Penicillins (Unverified Allergy, Severe, HIVES, 05/29/18) butorphanol (Verified Allergy, Unknown, 05/27/20) dapagliflozin (Verified Allergy, Unknown, 05/27/20) duloxetine (Verified Allergy, Unknown, 05/27/20) meperidine (Verified Allergy, Unknown, 05/27/20) Patient Home Medication List Home Medication List Reviewed: Yes Epinephrine (Epipen) 0.3 Mg/0.3 Ml Auto.injct, 0.3 MG IJ Q15M PRN for anaphylaxis Prescribed by: LUIS YATES on 03/27/21 2250 Prednisone (Prednisone) 20 Mg Tab, 40 MG PO DAILY Prescribed by: NADIRA SHARP on 10/26/20 0912 Review of Systems Review of Systems Constitutional: No chills, No fever, No weakness EENTM: No ear discharge, No ear pain Respiratory: No cough, No short of breath, No wheezing Cardiovascular: No chest pain, No edema Gastrointestinal: No abdominal pain, No nausea Genitourinary: No discharge, No dysuria Musculoskeletal: No back pain, No joint pain All Other Systems Reviewed Negative Unless Noted: Yes Past Xwgbrzj-Beilbo-Euhblb Hx Patient Social History Tobacco Use?: No Use of E-Cig and/or Vaping dev: No Substance use?: No Immunizations Up To Date Tetanus Booster (TDap): Unknown Seasonal Allergies Seasonal Allergies: No Past Medical History Surgeries: No Respiratory: Yes Asthma, COPD Cardiac: Yes Hypertension Neurological: No Genitourinary: No Gastrointestinal: No Musculoskeletal: No Endocrine: Yes Diabetes, Non-Insulin dep HEENT: No Cancer: No Psychosocial: No Integumentary: No Blood Disorders: No Physical Exam Vital Signs Vital Signs - First Documented 03/27/21 22:31 Temp 36.2 Pulse 121 Resp 24 B/P (MAP) 199/121 (147) Pulse Ox 97 O2 Delivery Room Air Capillary Refill : Height, Weight, BMI Height: '" Weight: lbs. oz. kg; 42.00 BMI Method: General Appearance: No Apparent Distress, WD/WN Eyes: Bilateral Eye Normal Inspection, Bilateral Eye PERRL, Bilateral Eye EOMI HEENT: Pharynx Normal, Moist Mucous Membranes Neck: Full Range of Motion, Normal Inspection, Non Tender, Supple Respiratory: Lungs Clear, Normal Breath Sounds, No Accessory Muscle Use, No Respiratory Distress Extremity: Normal Capillary Refill, Other (No visible sting ciara on his foot although his feet are covered in matted animal hair and dirt.) Neurologic/Psychiatric: Alert, Oriented x3 Skin: Normal Color, Warm/Dry Progress/Results/Core Measures Suspected Sepsis SIRS Temperature: Pulse: Respiratory Rate: Blood Pressure / Mean: Results/Orders My Orders Orders - LUIS YATES Famotidine Injection (Pepcid Injection) (03/27/21 22:45) Diphenhydramine Injection (Benadryl Inje (03/27/21 22:45) Loratadine Tablet (Claritin Tablet) (03/27/21 22:45) Medications Given in ED Current Medications Medications Dose Ordered Sig/Kristofer Route Start Time Stop Time Status Last Admin Dose Admin Diphenhydramine HCl 25 mg ONCE ONCE IVP 03/27/21 22:45 03/27/21 22:46 DC 03/27/21 22:46 25 MG Famotidine 20 mg ONCE ONCE IVP 03/27/21 22:45 03/27/21 22:46 DC 03/27/21 22:47 20 MG Loratadine 10 mg ONCE ONCE PO 03/27/21 22:45 03/27/21 22:46 DC 03/27/21 22:47 10 MG Vital Signs/I&O 03/27/21 22:31 Temp 36.2 Pulse 121 Resp 24 B/P (MAP) 199/121 (147) Pulse Ox 97 O2 Delivery Room Air Capillary Refill : Progress Note #1: Time: 22:42 Progress Note Since he has an IV established we will give him some Pepcid, Benadryl and Claritin and observe him for about an hour. He is not demonstrating any symptoms of anaphylaxis then we will allow him to go home. Progress Note #2: Time: 23:30 Progress Note Patient has had 0 symptoms since he has been here. He took a nap. Were going to allow him to follow-up outpatient and he is okay with this plan Departure Impression Primary Impression: Allergic reaction to bee sting Disposition: 01 HOME, SELF-CARE Condition: Stable Departure-Patient Inst. Decision time for Depature: 23:35 Referrals: NO,LOCAL PHYSICIAN (PCP/Family) Primary Care Physician Patient Instructions: Insect Bites and Stings (DC), Anaphylaxis (DC) Add. Discharge Instructions: support analyst your epinephrine refill. Claritin 10 mg daily if you experience any itching or swelling. Benadryl 1 to 2 tablets every 6 hours as necessary for itching or swelling. Pepcid 20 mg twice a day as necessary for itching or swelling. Return to the ER if you are having difficulty breathing, stridor, tongue swelling or lip swelling. Scripts Epinephrine (Epipen) 0.3 Mg/0.3 Ml Auto.injct 0.3 MG IJ Q15M PRN for anaphylaxis, #1 EA 0 Refills Prov: LUIS YATES 03/27/21 LUIS YATES Mar 27, 2021 22:43
[2021-03-27] MEDS ORDERED: diphenhydrAMINE 50 MG/ML INJ (BENADRYL) IVP ONE (22:45)
[2021-03-27] MEDS ORDERED: LORATADINE (CLARITIN) 10 MG TAB PO ONE (22:45)
[2021-03-27] MEDS ORDERED: FAMOTIDINE 20MG/2ML IV (PEPCID) IVP ONE (22:45)
[2021-03-27] MEDS ORDERED: EPIN0.3P2 IJ (22:50)
[2021-03-27 23:44] VITALS: BP 156/90
== END 2021-03-27 23:44 | disposition home or self-care (01) ==
LOC: EDUNIT# 22:31 → ER 22:32
DX: T63.441A Toxic effect of venom of bees, accidental (unintentional), initial encounter (principal); J44.9 Chronic obstructive pulmonary disease, unspecified; I10 Essential (primary) hypertension; E11.9 Type 2 diabetes mellitus without complications; Z79.52 Long term (current) use of systemic steroids

== ENCOUNTER 2021-04-28 20:12 | Emergency (ER) | payer MEDICARE, MEDICAID ==
[~2021-04-28 20:12] MED LIST changes: +EPIN0.3P2 IJ
--- OUTSIDE RECORDS SUMMARY | 2021-04-28 20:17 | XMS REPORT | Clinical Summary ---
Author Author [facility] Address Unknown Phone Unavailable Care Team Providers Care Project Manager Interior Design Name Role Phone Cheri Billings MD Unavailable Amy Oliva APRN Unavailable Caleb Rios MD Unavailable Homar Almaraz MD [phone] Leilani Mendoza DO [phone] Leilani Mendoza DO PCP Allergies Comments Active [...] Dx. E11.65 long-term current use of insulin ([facility]), Hypogonadism in male, Diabetic peripheral neuropathy ([facility]), Class 3 severe obesity due to excess calories with serious comorbidity and body mass index (BMI) of 45.0 to 49.9 in adult ([facility]), Essential hypertension, Mixed hyperlipidemia, Personal history of [...] hyperglycemia, without long-term current use of insulin ([facility]), Hypogonadism in male, Diabetic peripheral neuropathy ([facility]), Class 3 severe obesity due to excess calories with serious comorbidity and body mass index (BMI) of 45.0 to 49.9 in adult ([facility]), Essential hypertension, Mixed hyperlipidemia, Personal history of nonadherence to medical treatment, Exercise counseling, High risk medication use, Dietary counseling and surveillance, Long-term insulin use ([facility]), Complex care coordination Active losartan (COZAAR) 100 [...] 3CC LUER-MARIA LUISA SYR DIRECTED TO 0 86KP0-2/2) 21G X 1-1/2" 3 INJECT ML MISCIndications: [...] without long-term current MEAL(S) use of insulin ([facility]), Hypogonadism in male, Diabetic peripheral neuropathy ([facility]), Class 3 severe obesity due to excess calories with serious comorbidity and body mass index (BMI) of 45.0 to 49.9 in adult ([facility]), Essential hypertension, Mixed hyperlipidemia, Personal history of nonadherence to medical treatment, Exercise counseling, High risk medication use, Dietary counseling and surveillance, Long-term insulin use ([facility]), Complex care coordination Active tiotropium (SPIRIVA INHALE [...] mg 0 Diabetic peripheral total) by neuropathy ([facility]) mouth daily. Active zolpidem (AMBIEN) 5 MG [...] Patient desires labs to be sent to [facility]. Hospital number was given Essential hypertension [...] 09/13/2013 06/04/2019 Other abnormal blood chemistry 05/17/2019 Encounters Care Team Description Date Type Specialty Leilani Mendoza, Medication Refill 04/08/2021 Refill Internal Medicine from Last 3 Months Immunizations Name Administration Dates Next Due COVID-19 [...] Plan / Dates Group Medicare MEDICARE MEDICARE [id number] 1998-P [address] [place] [address] K[employer]ARE [employer] KANCARE 19 [id number] 2016- [phone] [address] [place] Present [address] [place] [address] Advance Directives For more information, please contact: [phone] 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 Film 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 Explanation Type Date Recorded Advance Directives and Living Will Power of Non Categorical Preschool Teacher Date Inactivated Comments Code Status Date Activated 09/13/2013 9:10 PM Full Code 09/13/2013 1:28 AM Care Teams Start Date End Date Project Manager Interior Design Relationship Specialty 11/08/19 Leilani Mendoza DO PCP - Internal [address] Internal Medicine [place], [place] [id number] [place] [address] [email or web address] 05/22/20 Leilani Mendoza DO PCP - General Internal [address] [place] [address] [email or web address] 04/04/17 Cheri Billings MD Pulmonology [address] [facility] ([facility] [place] [address] [email or web address] 12/11/18 Amy Oliva, AIR TUBE RELEASER Nurse [address] [place] [address] [email or web address] 01/17/19 Caleb Rios MD Neurology [address] [place] [address] [email or web address] 04/11/19 Homar Almaraz MD Ophthalmologi Ophthalmolog [address] [facility] [address] [place] [address] [email or web address]
--- OUTSIDE RECORDS SUMMARY | 2021-04-28 20:17 | XMS REPORT | Encounter Summary ---
Author Author [facility] Address Unknown Phone Unavailable Care Team Providers Care Printed Circuit Board Designer Name Role Phone Cheri Billings MD Unavailable Amy Oliva APRN Unavailable Caleb Rios MD Unavailable Homar Almaraz MD [phone] Leilani Mendoza DO [phone] Leilani Mendoza DO PCP Reason for Visit * Reason Comments Medication Refill Encounter Details Care Team Description Date Type Department Leilani Mendoza DO [address] [place] [address] [email or web address] [email or web address] Refill 04/08/2021 Refill Cotton O`Dionicio Inter [facility] Medicine - [place] [address] [place] [address] Social History Date Tobacco Use Types Packs/Day Years Used Quit: 09/12/2004 Former Smoker Cigarettes 1 Smokeless Tobacco: Never Used Comments Alcohol Use Standard Drinks/Week occ Yes 0 (1 standard drink = 0.6 o z pure alcohol) Control Partners Comments Sexually Active Female Not Currently Sex Assigned at Date Recorded Not on file Industry Job Start Date Occupation Not on file Not on file Not on file documented as of this encounter Miscellaneous Notes * Telephone Encounter - Dorothy Cifuentes LPN - 04/10/2021 2:18 PM CDT Called [facility] pharmacy in [place] and they state [facility] is who has filled meds. They will fax request to that office. * Telephone Encounter - Leilani Mendoza DO - 04/10/2021 8:39 AM CDT Can you call pharmacy and ask who has been filling his meds ? I think they sent refill Rx to the wrong provider since he moved I think he is s eeing someone in [facility], etc See what you can find out CIGARETTE EXAMINER * Telephone Encounter - Carli Matthews LPN - 04/10/2021 7:05 AM CDT Routing to pcp office to review due to gap in compliance. Greater than 60 days overdue for refills Should have ran out of meds in October Requested Prescriptions Pending Prescriptions Disp Refills amLODIPine (NORVASC) 10 MG tablet [Pharmacy Med Name: amLODIPine Besylate 10 MG Oral Tablet] 90 tablet 0 Sig: Take 1 tablet by mouth once daily 04/21/20 #90 + 1 rf Overdue for refills carvedilol (COREG) 12.5 MG tablet [Pharmacy Med Name: Carvedilol 12.5 MG Ora l Tablet] 180 tablet 0 Sig: TAKE 1 TABLET BY MOUTH TWICE DAILY WITH MEALS 04/21/20 #180 + 1 rf Overdue for refills Last OV: 08/27/20 Px Next OV: None scheduled Pertinent Lab: 05/05/20 CMP (exterrnal lab) documented in this encounter Plan of Treatment Not on filedocumented as of this encounter Goals Goal Patient Associated Recent Progress Patient-Stat Aut hor Goal Type Problems ed? Weight (lb) < 200 Weight 135.2 kg (298 lb) No Mela phillips, (02/12/2020 1:31 PM Ning Chahal APRN CDT) documented as of this encounter Visit Diagnoses Diagnosis Essential hypertension Unspecified essential hypertension documented in this encounter Additional Health Concerns Noted Time Assessment 11/30/2016 6:42 AM CDT A fall risk assessment has been complet ed for the patient documented as of this encounter Care Teams Start Date End Date Printed Circuit Board Designer Relationship Specialty 11/08/19 Leilani Mendoza DO PCP - Internal [address] [place] [address] Medicine [email or web address] 05/22/20 Leilani Mendoza DO PCP - General Internal [address] [place] [address] [email or web address] 04/04/17 Cheri Billings MD Pulmonology [address] [facility] ([facility] [place], [place] [address] [email or web address] 12/11/18 Amy Oliva, OPERATIONS CHIEF Nurse [address] [place], [place] [address] [email or web address] 01/17/19 Caleb Rios MD Neurology [address] [place], [place] [id number] [email or web address] 04/11/19 Homar Almaraz MD Ophthalmologi Ophthalmolog [address] [facility] [address] [place] [id number] [email or web address] documented as of this encounter
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
[2021-04-28 20:28] LABS: BASOPHILS % (AUTO) 0 % (0-10); EOSINOPHILS # (AUTO) 0.4 10^3/uL (0.0-0.3); EOSINOPHILS % (AUTO) 5 % (0-10); HEMATOCRIT 45 % (40-54); HEMOGLOBIN 15.5 g/dL (13.3-17.7); LYMPHOCYTES # (AUTO) 3.5 10^3/uL (1.0-4.0); LYMPHOCYTES % (AUTO) 38 % (12-44); MEAN CORPUSCULAR HEMOGLOBIN 29 pg (25-34); MEAN CORPUSCULAR HGB CONC 34 g/dL (32-36); MEAN CORPUSCULAR VOLUME 83 fL (80-99); MEAN PLATELET VOLUME 9.3 fL (9.0-12.2); MONOCYTES # (AUTO) 0.8 10^3/uL (0.0-1.0); MONOCYTES % (AUTO) 8 % (0-12); NEUTROPHILS # (AUTO) 4.6 10^3/uL (1.8-7.8); NEUTROPHILS % (AUTO) 49 % (42-75); PLATELET COUNT 317 10^3/uL (130-400); WHITE BLOOD COUNT 9.4 10^3/uL (4.3-11.0)
[2021-04-28] MEDS ORDERED: IOHEXOL 350 MG/ML 100 ML (OMNIPAQUE 350) VIAL IV ONE (20:30)
[2021-04-28] MEDS ORDERED: HOLD METFORMIN - RECEIVED CONTRAST 20 ML VIAL IV SCH (20:30)
[2021-04-28] MEDS ORDERED: NS 100 ML (IVPB) BAG IV ONE (20:30)
[2021-04-28] MEDS ORDERED: fentaNYL INJ 100 MCG/2 ML AMP IVP ONE (20:30)
[2021-04-28 20:45] LABS: INR 0.9 (0.8-1.4); PROTHROMBIN TIME PATIENT 12.7 SEC (12.2-14.7)
[2021-04-28 20:51] LABS: ALBUMIN 4.2 GM/DL (3.2-4.5); BILIRUBIN,TOTAL 0.4 MG/DL (0.1-1.0); CALCIUM 9.3 MG/DL (8.5-10.1); TOTAL PROTEIN 7.4 GM/DL (6.4-8.2)
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
[2021-04-28 21:50] VITALS: BP 134/87
== END 2021-04-28 21:50 | disposition home or self-care (01) ==
LOC: EDUNIT# 20:12 → ER 20:13
DX: S16.1XXA Strain of muscle, fascia and tendon at neck level, initial encounter (principal); J44.9 Chronic obstructive pulmonary disease, unspecified; I10 Essential (primary) hypertension; E11.9 Type 2 diabetes mellitus without complications; E66.9 Obesity, unspecified; Z68.35 Body mass index [BMI] 35.0-35.9, adult; Z79.52 Long term (current) use of systemic steroids; V89.2XXA Person injured in unspecified motor-vehicle accident, traffic, initial encounter
CPT/HCPCS: 36415; 70450; 71260; 72125; 74177; 80053; 85025; 85610; 96374

== ENCOUNTER 2021-05-10 23:45 | Emergency (ER) | payer MEDICARE, MEDICAID ==
[~2021-05-10] VITALS: Ht 183 cm; Wt 131.5 kg
--- OUTSIDE RECORDS SUMMARY | 2021-05-10 23:50 | XMS REPORT | Encounter Summary ---
Author Author [facility] [place][Note 2] Address Unknown Phone Unavailable Care Team Providers Care Die Finisher Forging Name Role Phone Cheri Billings MD Unavailable Amy Oliva APRN Unavailable Caleb Rios MD Unavailable Homar Almaraz MD [phone] Leilani Mendoza DO [id number] Leilani Mendoza DO PCP Reason for Visit * Reason Comments Medication Refill Encounter Details Care Team Description Date Type Department Leilani Mendoza DO [address] [place] [address] [email or web address] Medication Refill 05/07/2021 Refill Cotton [facility] [address] [place] [address] Social History Date Tobacco Use Types Packs/Day Years Used Quit: 09/12/2004 Former Smoker Cigarettes 1 Smokeless Tobacco: Never Used Comments Alcohol Use Standard Drinks/Week occ Yes 0 (1 standard drink = 0.6 o z pure alcohol) Alcohol Habits Answer Date Recorded How often do you have a drink containing alcohol? No t asked How many drinks containing alcohol do you have on No t asked a typical day when you are drinking? How often do you have six or more drinks on one Not asked occasion? Comment: occ 02/10/2019 [employer] Comments Sexually Active Female Not Currently Sex Assigned at Date Recorded Not on file Industry Job Start Date Occupation Not on file Not on file Not on file documented as of this encounter Miscellaneous Notes * Telephone Encounter - Beryl Rangel LPN - 05/10/2021 9:55 PM DIRECTOR DISTRIBUTION A1C overdue. Patient due for office visit. Requested Prescriptions Pending Prescriptions Disp Refills NOVOLOG FLEXPEN 100 UNIT/ML pen injection [Pharmacy Med Name: NovoLOG FlexPe n 100 UNIT/ML Subcutaneous Solution Pen-injector] Sig: INJECT 10 UNITS SUBCUTANEOUSLY THREE TIMES DAILY BEFORE MEAL(S) Last Rx: 04/21/20 for qty 15 mL with 5 additional refills Last PE: 08/27/20 Next OV: None Pertinent Labs: Hemoglobin A1C Date Value Ref Range Status 11/08/2019 6.9 (H) 4.5 - 6.2 % Final CTOR DISTRIBUTION documented in this encounter Plan of Treatment Not on filedocumented as of this encounter Goals Goal Patient Associated Recent Progress Patient-Stat Aut hor Goal Type Problems ed? Weight (lb) < 200 Weight 135.2 kg (298 lb) No Br jacqueline, (02/12/2020 1:31 PM Ning Chahal APRN CDT) documented as of this encounter Visit Diagnoses Diagnosis Type 2 diabetes mellitus with hyperglyc emia, without long-term current use of insulin (HCC) Hypogonadism in male Diabetic peripheral neuropathy (HCC) Type II or unspecified type diabetes me llitus with neurological manifestations, not stated as uncontrolled Class 3 severe obesity due to excess ca lories with serious comorbidity and body mass index (BMI) of 45.0 to 49.9 in adult (HCC) Unspecified essential hypertension Mixed hyperlipidemia Personal history of nonadherence to med ical treatment Personal history of noncompliance with medical treatment, presenting hazards to health Exercise counseling High risk medication use Encounter for long-term (current) use o f other medications Dietary counseling and surveillance Dietary surveillance and counseling Long-term insulin use (HCC) Encounter for long-term (current) use o f insulin Complex care coordination documented in this encounter Additional Health Concerns Noted Time Assessment 11/30/2016 6:42 AM CDT A fall risk assessment has been complet ed for the patient documented as of this encounter Care Teams Start Date End Date Die Finisher Forging Relationship Specialty 11/08/19 Leilani Mendoza DO PCP - Internal [address] [place] [address] Medicine [email or web address] formerly [email or web address] 05/22/20 Leilani Mendoza DO PCP - General Internal [address] [place] [address] [email or web address] 04/04/17 Cheri Billings MD Pulmonology [address] [facility] ([facility] [place] [address] [email or web address] [facility] [email or web address] 12/11/18 Amy lOiva, ROPING TENDER Nurse [address] [place] [address] [email or web address] - [email or web address] 01/17/19 Caleb Rios MD Neurology [address] [place] [address] [email or web address] 04/11/19 Homar Almaraz MD Ophthalmologi Ophthalmolog [address] [phone] [email or web address] documented as of this encounter
--- OUTSIDE RECORDS SUMMARY | 2021-05-10 23:50 | XMS REPORT | Clinical Summary ---
Author Author [facility] [place][Note 3] Address Unknown Phone Unavailable Care Team Providers Care Fingerprinter Name Role Phone Cheri Billings MD Unavailable Amy Oliva APRN Unavailable Caleb Rios MD Unavailable Homar Almaraz MD [phone] Leilani Mendoza DO [phone] Leilani Mendoza DO PCP Allergies Comments Active [...] Dx. E11.65 long-term current use of insulin ([facility]), Hypogonadism in male, Diabetic peripheral neuropathy ([facility]), Class 3 severe obesity due to excess calories with serious comorbidity and body mass index (BMI) of 45.0 to 49.9 in adult ([facility]), Essential hypertension, Mixed hyperlipidemia, Personal [...] hyperglycemia, without long-term current use of insulin ([facility]), Hypogonadism in male, Diabetic peripheral neuropathy ([facility]), Class 3 severe obesity due to excess calories with serious comorbidity and body mass index (BMI) of 45.0 to 49.9 in adult ([facility]), Essential hypertension, Mixed hyperlipidemia, Personal history of nonadherence to medical treatment, Exercise counseling, High risk medication use, Dietary counseling and surveillance, Long-term insulin use ([facility]), Complex care coordination Active losartan [...] 3CC LUER-MARIA LUISA SYR DIRECTED TO 0 08YI1-9/2) 21G X 1-1/2" 3 INJECT ML MISCIndications: [...] without long-term current MEAL(S) use of insulin ([facility]), Hypogonadism in male, Diabetic peripheral neuropathy ([facility]), Class 3 severe obesity due to excess calories with serious comorbidity and body mass index (BMI) of 45.0 to 49.9 in adult ([facility]), Essential hypertension, Mixed hyperlipidemia, Personal history of nonadherence to medical treatment, Exercise counseling, High risk medication use, Dietary counseling and surveillance, Long-term insulin use ([facility]), Complex care coordination Active tiotropium [...] mg 0 Diabetic peripheral total) by neuropathy ([facility]) mouth daily. Active zolpidem (AMBIEN) [...] Patient desires labs to be sent to [facility]. Hospital number was given Essential hypertension [...] Team Description Date Type Specialty Leilani Mendoza, DO Medication Refill 05/07/2021 Refill Internal Medicine Leilani Mendoza, DO Medication Refill 04/08/2021 Refill Internal Medicine from [...] Plan / Dates Group Medicare MEDICARE MEDICARE [id number] 1998-P [address] [place] [address] KANCARE SUNFLOWER KANCARE 19 [id number] 2016- [phone] [address] [place] [address] Advance Directives For more information, please contact: [phone] Patient Check Writer Explanation Type Date Recorded Advance Directives and Living Will Power of Sales Operations Manager Date Inactivated Comments Code Status Date Activated 09/13/2013 9:10 PM Full Code 09/13/2013 1:28 AM Care Teams Start Date End Date Fingerprinter Relationship Specialty 11/08/19 Leilani Mendoza DO PCP - Internal [address] [place] [address] Medicine [email or web address] 05/22/20 Leilani Mendoza DO PCP - General Internal [address] [place] [address] [email or web address] 04/04/17 Cheri Billings MD Pulmonology [address] [facility] [place] [address] [email or web address] 12/11/18 Amy Oliva APRN Nurse [address] [place] [address] [email or web address] 01/17/19 Caleb Rios MD Neurology [address] [place] [address] [email or web address] 04/11/19 Homar Almaraz MD Ophthalmologi Ophthalmolog [address] [phone] [email or web address]
[2021-05-11] MEDS ORDERED: PANTOPRAZOLE 40 MG (PROTONIX) VIAL IV ONE
[2021-05-11] MEDS ORDERED: NS IV 1000 ML 1,000 ML IV SCH
[2021-05-11 00:08] LABS: BASOPHILS % (AUTO) 0 % (0-10); EOSINOPHILS # (AUTO) 0.3 10^3/uL (0.0-0.3); EOSINOPHILS % (AUTO) 3 % (0-10); HEMATOCRIT 46 % (40-54); HEMOGLOBIN 15.8 g/dL (13.3-17.7); LYMPHOCYTES % (AUTO) 18 % (12-44); MEAN CORPUSCULAR HEMOGLOBIN 29 pg (25-34); MEAN CORPUSCULAR HGB CONC 34 g/dL (32-36); MEAN CORPUSCULAR VOLUME 83 fL (80-99); MEAN PLATELET VOLUME 9.3 fL (9.0-12.2); MONOCYTES # (AUTO) 0.8 10^3/uL (0.0-1.0); MONOCYTES % (AUTO) 7 % (0-12); NEUTROPHILS % (AUTO) 72 % (42-75); PLATELET COUNT 303 10^3/uL (130-400); WHITE BLOOD COUNT 11.1 10^3/uL (4.3-11.0)
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
[2021-05-11 00:24] LABS: ALBUMIN 4.1 GM/DL (3.2-4.5); CHLORIDE 103 MMOL/L (98-107); POTASSIUM 3.8 MMOL/L (3.6-5.0); SODIUM 138 MMOL/L (135-145)
[2021-05-11 00:25] LABS: AMYLASE 57 U/L (25-125); CALCIUM 9.2 MG/DL (8.5-10.1)
[2021-05-11 00:27] LABS: GLUCOSE 171 MG/DL (70-105); TOTAL PROTEIN 6.8 GM/DL (6.4-8.2)
[2021-05-11 00:28] LABS: BILIRUBIN,TOTAL 0.3 MG/DL (0.1-1.0); CARBON DIOXIDE 19 MMOL/L (21-32)
[2021-05-11 00:30] LABS: ALKALINE PHOSPHATASE 74 U/L (40-136); CREATININE SERUM 0.94 MG/DL (0.60-1.30); GFR ESTIMATED 86
[2021-05-11 00:31] LABS: BUN/CREATININE RATIO 17
[2021-05-11 00:33] LABS: ALANINE AMINOTRANSFERASE 43 U/L (0-55); MAGNESIUM 1.7 MG/DL (1.6-2.4)
[2021-05-11 00:34] LABS: LIPASE 27 U/L (8-78)
[2021-05-11 00:41] LABS: BILIRUBIN,URINE NEGATIVE (NEGATIVE); CLARITY,URINE CLEAR; COLOR,URINE YELLOW; GLUCOSE, URINE (UA) NEGATIVE (NEGATIVE); KETONES,URINE NEGATIVE (NEGATIVE); LEUKOCYTE ESTERASE ,URINE NEGATIVE (NEGATIVE); NITRITE,URINE NEGATIVE (NEGATIVE); PROTEIN,URINE NEGATIVE (NEGATIVE)
[2021-05-11 00:53] LABS: BACTERIA,URINE NEGATIVE /HPF
[2021-05-11 00:54] LABS: AMPHETAMINE SCREEN, URINE NEGATIVE (NEGATIVE); BARBITURATE SCREEN URINE NEGATIVE (NEGATIVE); BENZODIAZEPINES SCREEN URINE NEGATIVE (NEGATIVE); CANNABINOID SCREEN, URINE NEGATIVE (NEGATIVE); COCAINE SCREEN URINE NEGATIVE (NEGATIVE); METHADONE STAT NEGATIVE (NEGATIVE); METHAMPHETAMINE SCREEN URINE S NEGATIVE (NEGATIVE); OPIATE SCREEN URINE NEGATIVE (NEGATIVE); OXYCODONE STAT NEGATIVE (NEGATIVE); PROPOXYPHENE STAT NEGATIVE (NEGATIVE); TRICYCLIC ANTIDEPRESSANTS SCRE NEGATIVE (NEGATIVE)
[2021-05-11] MEDS ORDERED: CATHETER FLUSH 10 ML SYR IV PRN (01:30)
[2021-05-11] MEDS ORDERED: IOHEXOL 350 MG/ML 100 ML (OMNIPAQUE 350) VIAL IV ONE (01:30)
[2021-05-11] MEDS ORDERED: NS 100 ML (IVPB) BAG IV ONE (01:30)
[2021-05-11] MEDS ORDERED: HOLD METFORMIN - RECEIVED CONTRAST 20 ML VIAL IV SCH (01:30)
[2021-05-11] MEDS ORDERED: ONDANSETRON 4 MG/2 ML (SDV) Z0FRAN IVP ONE ×2 (01:45)
[2021-05-11] MEDS ORDERED: METR-145 PO (04:20)
[2021-05-11] MEDS ORDERED: ACHD5005 PO (04:20)
[2021-05-11] MEDS ORDERED: CIPR500T5 PO (04:20)
[2021-05-11] MEDS ORDERED: ONDA8TAB13 PO (04:20)
[2021-05-11] MEDS ORDERED: L. A1CAP11 PO (04:20)
[2021-05-11 04:27] VITALS: BP 138/79
[2021-05-11] MEDS ORDERED: CIPROFLOXACIN 500 MG (CIPRO) TABLET PO SCH (04:30)
[2021-05-11] MEDS ORDERED: metroNIDAZOLE 500 MG (FLAGYL) TAB PO ONE (04:30)
[2021-05-11] MEDS ORDERED: KETOROLAC 30 MG/ML VIAL IVP ONE (04:30)
--- NOTE | 2021-05-11 06:11 | Diagnostic Imaging Report ---
PROCEDURE: CT abdomen and pelvis with contrast. TECHNIQUE: Multiple contiguous axial images were obtained through the abdomen and pelvis after administration of intravenous contrast. Auto Exposure Controls were utilized during the CT exam to meet ALARA standards for radiation dose reduction. All CT scans use one or more of the following dose optimizing techniques: automated exposure control, MA and/or KvP adjustment based on patient size and exam type or iterative reconstruction. INDICATION: Left lower quadrant abdominal pain COMPARISON: 04/28/2021. FINDINGS: There is mild inflammatory change involving the descending colon compatible with acute diverticulitis. There is no free air, free fluid or abscess. There is no bowel obstruction. The lung bases are clear. The gallbladder, solid organs, vascular structures, urinary bladder and prostate are stable. There is prostate enlargement. Fat-containing umbilical hernia is stable. Osseous structures are age-appropriate. IMPRESSION: Non-complicated acute diverticulitis of the descending colon. Agree with preliminary report. Dictated by: Dictated on workstation # [id number]
== END 2021-05-11 04:31 | disposition home or self-care (01) ==
LOC: EDUNIT# 23:45 → ER 23:47
DX: K57.32 Diverticulitis of large intestine without perforation or abscess without bleeding (principal); J44.9 Chronic obstructive pulmonary disease, unspecified; I10 Essential (primary) hypertension; G89.29 Other chronic pain; M54.9 Dorsalgia, unspecified; E11.9 Type 2 diabetes mellitus without complications; E66.9 Obesity, unspecified; Z68.39 Body mass index [BMI] 39.0-39.9, adult; Z87.891 Personal history of nicotine dependence; Z79.52 Long term (current) use of systemic steroids; Z79.891 Long term (current) use of opiate analgesic
CPT/HCPCS: 74177; 80053; 80306; 81000; 82150; 82947; 83690; 83735; 85025; 96361; 96374; 96375; 96376; 99284; G0480; 36415; 80320

== ENCOUNTER 2021-05-14 06:41 | Outpatient (CLI) | payer MEDICARE, MEDICAID ==
[~2021-05-14] VITALS: Ht 180 cm; Wt 132.9 kg
[~2021-05-14 06:41] MED LIST changes: +ACHD5005 PO; +CIPR500T5 PO; +L. A1CAP11 PO; +METR-145 PO; +ONDA8TAB13 PO
[2021-05-14] MEDS ORDERED: BACL10TA PO (13:15)
[2021-05-14] MEDS ORDERED: METF-397 PO (13:15)
[2021-05-14] MEDS ORDERED: ALLO100T PO (13:15)
[2021-05-14] MEDS ORDERED: AMLO-251 PO (13:15)
[2021-05-14] MEDS ORDERED: DULA1.5P2 SQ (13:15)
[2021-05-14] MEDS ORDERED: PRAM0.5T9 PO (13:15)
[2021-05-14] MEDS ORDERED: OXYB5TAB13 PO (13:15)
[2021-05-14] MEDS ORDERED: INSU100I14 SQ (13:15)
[2021-05-14] MEDS ORDERED: CARV12.53 PO (13:15)
[2021-05-14] MEDS ORDERED: CETI10TA17 PO (13:15)
[2021-05-14] MEDS ORDERED: NAPR-915 PO (13:15)
[2021-05-14] MEDS ORDERED: DILT180C82 PO (13:15)
[2021-05-14] MEDS ORDERED: BUDE10.2 IH (13:15)
[2021-05-14] MEDS ORDERED: FURO20TA4 PO (13:15)
[2021-05-14] MEDS ORDERED: PANT20TA18 PO (13:15)
[2021-05-14] MEDS ORDERED: PREG200C28 PO (13:15)
[2021-05-14] MEDS ORDERED: LOSA100T57 PO (13:15)
[2021-05-14] MEDS ORDERED: INSU100I29 SQ (13:15)
== END 2021-05-14 13:53 | disposition home or self-care (01) ==
LOC: PREOP 06:41
PROVIDERS: ATTEND Surgery
DX: Z01.818 Encounter for other preprocedural examination (principal)

== ENCOUNTER 2021-05-21 10:43 | Day surgery (SDC) | payer MEDICARE, MEDICAID ==
[2021-05-21] VITALS (11 sets, daily range): BP systolic 109–138; BP diastolic 70–91
[~2021-05-21] VITALS: Ht 180 cm; Wt 132.9 kg
[~2021-05-21 10:43] MED LIST changes: +ALLO100T PO; +AMLO-251 PO; +BACL10TA PO; +BUDE10.2 IH; +CARV12.53 PO; +CETI10TA17 PO; +DILT180C82 PO; +DULA1.5P2 SQ; +FURO20TA4 PO; +INSU100I14 SQ; +INSU100I29 SQ; +LOSA100T57 PO; +METF-397 PO; +NAPR-915 PO; +OXYB5TAB13 PO; +PANT20TA18 PO; +PRAM0.5T9 PO; +PREG200C28 PO
[2021-05-21] MEDS ORDERED: CLINDAMYCIN 600 MG/50 ML IVPB 50 ML IV ONE (11:15)
[2021-05-21] MEDS: LACTATED RINGERS 1,000 ML IV PRN ×2 (11:17→15:32)
--- NOTE | 2021-05-21 11:52 | Progress Note-Pre Operative ---
Pre-Operative Progress Note H&P Reviewed The H&P was reviewed, patient examined and no changes noted. Date Seen by Provider: May 21, 2021 Time Seen by Provider: 11:45 Date H&P Reviewed: May 21, 2021 Time H&P Reviewed: 11:45 Pre-Operative Diagnosis: sx umbilical hernia NATALEE ESCOBAR MD May 21, 2021 11:52
[2021-05-21] MEDS ORDERED: HYDR-3817 PO (11:53)
--- NOTE | 2021-05-21 11:54 | Discharge Inst-Surgical ---
D/C Lap Instructions-LUZ New, Converted, or Re-Newed RX: RX on Chart Follow Up Appt in 2 weeks Activity as tolerated No driving for 24 hours No driving while on pain medications Incentive Spirometry use every 2 hours while awake Regular Diet Symptoms to Report: Fever over 101 degree F, Nausea/Vomiting Infection Signs and Symptoms to report: Increased redness, Foul odor of wound, Increased drainage Bathing instructions: May shower Operative Area Clean/Dry; Keep incision clean/dry If any problems/questions: Contact your physician or go to Emergency Room NATALEE ESCOBAR MD May 21, 2021 11:54
[2021-05-21] MEDS ORDERED: ONDANSETRON 4 MG (ZOFRAN) ORAL DISSOLVE TAB PO PRN (12:00)
[2021-05-21] MEDS ORDERED: ONDANSETRON 4 MG/2 ML (SDV) Z0FRAN IVP PRN ×2 (12:00→15:15)
[2021-05-21] MEDS ORDERED: LIDOCAINE/EPI 1%-1:200,000 (XYLOCAINE) 30 ML VIAL ONE (12:02)
[2021-05-21] MEDS ORDERED: ONDANSETRON 4 MG/2 ML (SDV) Z0FRAN ONE (12:46)
[2021-05-21] MEDS ORDERED: LIDOCAINE PF 2% 5 ML (XYLOCAINE) VIAL ONE (12:46)
[2021-05-21] MEDS ORDERED: MIDAZOLAM 2 MG/2 ML (VERSED) VIAL ONE (12:46)
[2021-05-21] MEDS ORDERED: fentaNYL INJ 100 MCG/2 ML AMP ONE (12:46)
[2021-05-21] MEDS ORDERED: ROCURONIUM 10 MG/ML 5 ML SYRINGE IV ONE (12:46)
[2021-05-21] MEDS ORDERED: proPOfol 200 MG/20 ML (DIPRIVAN) VIAL IV ONE (12:46)
[2021-05-21] MEDS ORDERED: NEOSTIGMINE 3 MG/3 ML VIAL ONE (14:46)
[2021-05-21] MEDS ORDERED: GLYCOPYRROLATE 0.2 MG/ML (ROBINUL) 2 ML VIAL ONE (14:46)
--- NOTE | 2021-05-21 14:51 | Progress Note-Post Operative ---
Post-Operative Progess Note Surgeon (s)/Cardiology Technologist (s) Surgeon NATALEE ESCOBAR MD Cardiology Technologist: pavan causey RADIO ENGINEER Pre-Operative Diagnosis sx umbilical hernia Post-Operative Diagnosis same Procedure & Operative Findings Date of Procedure 05/21/21 Procedure Performed/Findings open incarcerated umbilical hernia repair with mesh. Anesthesia Type get Estimated Blood Loss Estimated blood loss (mL): minimal Specimens/Packing Specimens Removed none NATALEE ESCOBAR MD May 21, 2021 14:51
[2021-05-21] MEDS ORDERED: morphine INJ 10 MG/ML 1ML (SYR OR VIAL) IVP ONE (15:15)
--- NOTE | 2021-05-21 16:31 | Anesthesia-General Post-Op ---
General Patient Condition Mental Status/LOC: Same as Preop Cardiovascular: Satisfactory Nausea/Vomiting: Present (being treated with RX) Respiratory: Satisfactory Pain: Controlled Complications: Absent Post Op Complications Complications None Follow Up Care/Instructions Patient Instructions None needed. Anesthesia/Patient Condition Patient Condition Patient is doing well, no complaints, stable vital signs, no apparent adverse anesthesia problems. No complications reported per nursing. CONY SCHMITT CRNA May 21, 2021 16:31
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
--- OUTSIDE RECORDS SUMMARY | 2021-05-25 10:34 | XMS REPORT | Clinical Summary ---
Author Author [facility] Address Unknown Phone Unavailable Care Team Providers Care Algorithm Developer Name Role Phone Cheri Billings MD Unavailable Amy Oliva APRN Unavailable Caleb Rios MD Unavailable Homar Almaraz MD [phone] Leilani Mendoza DO [phone] Leilani Mendoza DO PCP Allergies Comments Active [...] Dx. E11.65 long-term current use of insulin ([facility]), Hypogonadism in male, Diabetic peripheral neuropathy ([facility]), Class 3 severe obesity due to excess calories with serious comorbidity and body mass index (BMI) of 45.0 to 49.9 in adult ([facility]), Essential hypertension, Mixed hyperlipidemia, Personal history of [...] hyperglycemia, without long-term current use of insulin ([facility]), Hypogonadism in male, Diabetic peripheral neuropathy ([facility]), Class 3 severe obesity due to excess calories with serious comorbidity and body mass index (BMI) of 45.0 to 49.9 in adult ([facility]), Essential hypertension, Mixed hyperlipidemia, Personal history of nonadherence to medical treatment, Exercise counseling, High risk medication use, Dietary counseling and surveillance, Long-term insulin use ([facility]), Complex care coordination Active losartan (COZAAR) 100 [...] 3CC LUER-MARIA LUISA SYR DIRECTED TO 0 60LY0-2/2) 21G X 1-1/2" 3 INJECT ML MISCIndications: [...] without long-term current MEAL(S) use of insulin ([facility]), Hypogonadism in male, Diabetic peripheral neuropathy ([facility]), Class 3 severe obesity due to excess calories with serious comorbidity and body mass index (BMI) of 45.0 to 49.9 in adult ([facility]), Essential hypertension, Mixed hyperlipidemia, Personal history of nonadherence to medical treatment, Exercise counseling, High risk medication use, Dietary counseling and surveillance, Long-term insulin use ([facility]), Complex care coordination Active tiotropium (SPIRIVA INHALE [...] mg 0 Diabetic peripheral total) by neuropathy ([facility]) mouth daily. Active zolpidem (AMBIEN) 5 MG [...] Patient desires labs to be sent to [facility]. 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 Explanation Type Date Recorded Advance Directives and Living Will Power of Hollow Tile Partition Erector Date Inactivated Comments Code Status Date Activated 09/13/2013 9:10 PM Full Code 09/13/2013 1:28 AM Care Teams Start Date End Date Algorithm Developer Relationship Specialty 11/08/19 Leilani Mendoza DO PCP - Internal [address] [place] [address] Medicine [email or web address] 05/22/20 Leilani Mendoza DO PCP - General Internal [address] [place] [address] [email or web address] 04/04/17 Cheri Billings MD Pulmonology [address] [facility] ([facility]) [place] [address] [email or web address] 12/11/18 Amy Oliva APRN Nurse [address] [place] [address] [email or web address] 01/17/19 Caleb Rios MD Neurology [address] [place] [address] [email or web address] 04/11/19 Homar Almaraz MD Ophthalmologi Ophthalmolog [address] [phone] [email or web address]
--- OUTSIDE RECORDS SUMMARY | 2021-05-25 10:34 | XMS REPORT | Encounter Summary ---
Author Author [facility] Address Unknown Phone Unavailable Care Team Providers Care Sales Force Developer Name Role Phone Cheri Billings MD Unavailable Amy Oliva APRN Unavailable Caleb Rios MD Unavailable Homar Almaraz MD [phone] Leilani Mendoza DO [id number] Leilani Mendoza DO PCP Reason for Visit * Reason Comments Medication Refill Encounter Details Care Team Description Date Type Department Leilani Mendoza DO [address] [place] [address] [email or web address] Medication Refill 05/07/2021 Refill Cotton [facility] Inter [facility] [address] [place] [address] Social History Date Tobacco Use Types Packs/Day [...] Beryl Rangel LPN - 05/10/2021 9:55 PM 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 Patient due for office visit. Per last note for refil on 04/08/21, patient was having refills done by different provider. Will deny back. Requested Prescriptions Pending Prescriptions Disp Refills NOVOLOG [...] 6.9 (H) 4.5 - 6.2 % Final TIAN BLIND INSTALLER documented in this encounter Plan of Treatment [...] encounter Care Teams Start Date End Date Sales Force Developer Relationship Specialty 11/08/19 Leilani Mendoza DO PCP - Internal [address] [place] [address] Medicine [email or web address] 05/22/20 Leilani Mendoza DO PCP - General Internal [address] [place] [address] [email or web address] 04/04/17 Cheri Billings MD Pulmonology [address] [facility] ([facility] [place] [address] [email or web address] 12/11/18 Amy Oliva, INFECTIOUS WASTE TECHNICIAN Nurse [address] [place] [address] [email or web address] 01/17/19 Caleb Rios MD Neurology [address] [place] [address] [email or web address] 04/11/19 Homar Almaraz MD Ophthalmologi Ophthalmolog [address] [facility] [address] [place] [address] [email or web address] documented as of this encounter
== END 2021-05-21 18:00 ==
LOC: SDC 10:43
PROVIDERS: ATTEND Surgery
DX: K42.0 Umbilical hernia with obstruction, without gangrene (principal); I10 Essential (primary) hypertension; J45.909 Unspecified asthma, uncomplicated; G47.33 Obstructive sleep apnea (adult) (pediatric); E11.40 Type 2 diabetes mellitus with diabetic neuropathy, unspecified; E66.9 Obesity, unspecified; G89.29 Other chronic pain; M54.9 Dorsalgia, unspecified; K21.9 Gastro-esophageal reflux disease without esophagitis; K57.32 Diverticulitis of large intestine without perforation or abscess without bleeding; Z79.4 Long term (current) use of insulin; Z79.84 Long term (current) use of oral hypoglycemic drugs; Z79.899 Other long term (current) drug therapy; Z87.891 Personal history of nicotine dependence; Z79.82 Long term (current) use of aspirin; Z79.891 Long term (current) use of opiate analgesic; Z79.1 Long term (current) use of non-steroidal anti-inflammatories (NSAID); Z68.42 Body mass index [BMI] 45.0-49.9, adult
CPT/HCPCS: 49587; 82947; 87081; C1781